=== PATIENT | male | born 1955 | race Caucasian/White ===

== ENCOUNTER 2017-11-02 22:06 | Emergency (ER) | payer OTHER ==
--- NOTE | 2017-11-02 22:26 | PDOC ---
Attending Attestation - Resident Resident Name: Adi Durán - ED Attending Attestation I have performed the following: I have examined & evaluated the patient, The case was reviewed & discussed with the resident, I agree w/resident's findings & plan, Exceptions are as noted - HPI HPI: 11/02/17 22:25 62y M hx of HL, r sided back pain approx 3pm that now radiates to the RLL. pain seems to intermittently worsen and now is not too bad. the patient denies any fever/chills, dysuria though he notes some dark urine prior to presentation. no dysuria or other urinary symtoms vomiting. on exam the pt is in no acute distress minimal R flank tendernesss with percussion no abd tenderness suspect kidney stones will ck labs, ua will obtain ct, will treat with fluids, pain meds will reassess - Physicial Exam PE: 11/03/17 01:12 see above - Medical Decision Making 11/03/17 01:[address] noted for kidney stones, some hydro noted pts pain is controlled curretnly will dc with uro follow up and supportive care I discussed the physical exam findings, ancillary test results and final diagnoses with the patient. I answered all of the patient's questions. The patient was satisfied with the care received and felt comfortable with the discharge plan and treatment plan. The patient will call their primary care physician within 24 hours to arrange follow-up and will return to the Emergency Department with any new, persistent or worsening symptoms.
[2017-11-02 22:31] VITALS: BP 121/90; PULSE 67; TEMP 98; BMI 23.3
[2017-11-02] MEDS ORDERED: KETOROLAC TROMETHAMINE 15 MG/ML VIAL IVPUSH ONE (22:36)
--- NOTE | 2017-11-02 22:36 | PDOC ---
History of Present Illness - General Chief Complaint: Pain, Acute Stated Complaint: BACK PAIN Time Seen by Provider: 11/02/17 22:18 History Source: Patient Exam Limitations: No Limitations - History of Present Illness Initial Comments: 11/02/17 22:32 62 with h/o hld present to the with LLQ pain that started around 3pm as lower right back pain. Pain is worse when patient is sitting down. One episode earlier today of dark urine. Denies history of renal stones and appendicitis. No dysuria, no hematuria. no chills, fever, nausea, vomiting, diarrhea. 11/02/17 22:33 Past History - Past Medical History Allergies/Adverse Reactions: Allergies Allergy/AdvReac Type Severity Reaction Status Date / Time No Known Allergies Allergy Verified 11/02/17 22:29 - Immunization History Td Vaccination: Yes Immunization Up to Date: No - Suicide/Smoking/Psychosocial Hx Smoking Status: No Smoking History: Never smoked Have you smoked in the past 12 months: No Number of Cigarettes Smoked Daily: 0 Information on smoking cessation initiated: No Hx Alcohol Use: No Drug/Substance Use Hx: No Review of Systems - Review of Systems Able to Perform ROS?: Yes Is the patient limited [place] proficient: No Constitutional: No: Symptoms Reported HEENTM: No: Symptoms Reported Respiratory: No: Symptoms reported Cardiac (ROS): No: Symptoms Reported ABD/GI: No: Symptoms Reported : Yes: See HPI Musculoskeletal: Yes: See HPI Integumentary: No: Symptoms Reported Neurological: No: Symptoms reported Endocrine: No: Symptoms Reported *Physical Exam - Vital Signs Last Vital Signs Temp Pulse Resp BP Pulse Ox 98.0 F 67 18 121/90 98 11/02/17 22:29 11/02/17 22:29 11/02/17 22:29 11/02/17 22:29 11/02/17 22:29 - Physical Exam General Appearance: Yes: Nourished, Appropriately Dressed. No: Apparent Distress HEENT: positive: EOMI, RADHA, Normal ENT Inspection Neck: positive: Trachea midline. negative: Tender Respiratory/Chest: positive: Lungs Clear, Normal Breath Sounds. negative: Chest Tender, Respiratory Distress Cardiovascular: positive: Regular Rhythm, Regular Rate, S1, S2 Gastrointestinal/Abdominal: positive: Normal Bowel Sounds, Flat, Soft. negative : Tender Musculoskeletal: positive: CVA Tenderness (R). negative: Vertebral Tenderness Extremity: positive: Normal Capillary Refill Integumentary: positive: Normal Color, Dry, Warm Neurologic: positive: Fully Oriented, Alert, Normal Mood/Affect ED Treatment Course - LABORATORY CBC & Chemistry Diagram: 11/02/17 22:40 11/02/17 22:40 Medical Decision Making - Medical Decision Making 11/02/17 22:35 renal stones vs muscular spasm vs appendicitis basic labs, ua, ct abd pending 11/02/17 23:13 UA: 2+ blood, protein CT pending 11/02/17 23:16 Patient signed out to Dr. Miranda *DC/Admit/Observation/Transfer Diagnosis at time of Disposition: Nephrolithiasis - Discharge Dispostion Disposition: HOME Condition at time of disposition: Improved - Referrals - Patient Instructions Printed Discharge Instructions: DI for Kidney Stones Additional Instructions: Come back to the Ed for any new, concerning or worsening symptom. Follow up with your primary doctor within the next 3 days. - Post Discharge Activity
[2017-11-02 22:48] LABS: BASO % 0.5 % (0-2.0); EOS % 0.4 % (0-4.5); HEMOGLOBIN 13.6 GM/dL (11.7-16.9); LYMPH % 15.5 % (8-40); MCH 31.6 pg (25.7-33.7); MEAN CELL VOLUME 93.1 fl (80-96); MEAN PLT VOLUME 8.6 fl (7.5-11.1); NEUT % 76.6 % (42.8-82.8); PLATELET COUNT 176 K/MM3 (134-434); RDW 13.2 % (11.9-15.9); WHITE BLOOD COUNT 9.2 K/mm3 (4.0-10.0)
[2017-11-02] MEDS ORDERED: KETOROLAC TROMETHAMINE 15 MG/ML VIAL ONE (22:49)
[2017-11-02 22:52] LABS: URINE APPEARANCE SLCLOUDY; URINE BILIRUBIN NEGATIVE (NEGATIVE); URINE BLOOD 3+ (NEGATIVE); URINE COLOR YELLOW; URINE GLUCOSE (UA) NEGATIVE (NEGATIVE); URINE KETONE NEGATIVE (NEGATIVE); URINE LEUK ESTERASE NEGATIVE (NEGATIVE); URINE NITRITE NEGATIVE (NEGATIVE); URINE UROBILINOGEN 4.0 E.U/dl mg/dL (0.2-1.0)
[2017-11-02 22:53] LABS: URINE PROTEIN 2+ (NEGATIVE)
[2017-11-02] MEDS ORDERED: SODIUM CHLORIDE 1,000 ML IV STA (23:05)
[2017-11-02] MEDS ORDERED: TAMSULOSIN HCL 0.4 MG CAP.ER.24H (FP) PO ONE (23:10)
[2017-11-02 23:18] LABS: ALBUMIN 4.1 g/dl (3.4-5.0); ALK PHOS 36 U/L (45-117); ANION GAP 5 (8-16); BILIRUBIN,TOTAL 0.8 mg/dL (0.2-1.0); BLOOD UREA NITROGEN 16 mg/dL (7-18); CALCIUM 8.1 mg/dL (8.5-10.1); CHLORIDE 105 mmol/L (98-107); CO2 30 mmol/L (21-32); GLUCOSE,RANDOM 94 mg/dL (74-106); SGOT/AST 23 U/L (15-37); SGPT/ALT 21 U/L (12-78); SODIUM 140 mmol/L (136-145); TOT PROT 6.3 g/dl (6.4-8.2)
[2017-11-02] MEDS ORDERED: TAMSULOSIN HCL 0.4 MG CAP.ER.24H (FP) ONE (23:26)
--- NOTE | 2017-11-02 23:54 | PDOC ---
*Physical Exam - Vital Signs Last Vital Signs Temp Pulse Resp BP Pulse Ox 98.0 F 67 18 121/90 98 11/02/17 22:29 11/02/17 22:29 11/02/17 22:29 11/02/17 22:29 11/02/17 22:29 - Physical Exam Comments: 11/03/17 00:51 GENERAL: Awake, alert, and fully oriented, in no acute distress HEAD: No signs of trauma, normocephalic, atraumatic EYES: PERRLA, EOMI, sclera anicteric, conjunctiva clear ENT: Auricles normal inspection, hearing grossly normal, nares patent, oropharynx clear without exudates. Moist mucosa NEUROLOGICAL: Cranial nerves II through XII grossly intact. Normal speech, no focal sensorimotor deficits SKIN: Warm, Dry, normal turgor, no rashes or lesions noted. ED Treatment Course - LABORATORY CBC & Chemistry Diagram: 11/02/17 22:40 11/02/17 22:40 - ADDITIONAL ORDERS Additional order review: Laboratory Results 11/02/17 11/02/17 22:48 22:40 Sodium 140 Potassium 4.0 Chloride 105 Carbon Dioxide 30 Anion Gap 5 L BUN 16 Creatinine 1.0 Creat Clearance w eGFR > 60 Random Glucose 94 Calcium 8.1 L Total Bilirubin 0.8 AST 23 ALT 21 Alkaline Phosphatase 36 L Total Protein 6.3 L Albumin 4.1 Urine Color Yellow Urine Appearance Slcloudy Urine pH 7.0 Ur Specific [place] 1.021 Urine Protein 2+ H Urine Glucose (UA) Negative Urine Ketones Negative Urine Blood 3+ H Urine Nitrite Negative Urine Bilirubin Negative Urine Urobilinogen 4.0 e.u/dl 11/02/17 22:40 RBC 4.30 MCV 93.1 MCHC 34.0 RDW 13.2 MPV 8.6 Neutrophils % 76.6 Lymphocytes % 15.5 Monocytes % 7.0 Eosinophils % 0.4 Basophils % 0.5 - RADIOLOGY Radiology Studies Ordered: Category Date Time Status SPIRAL- RENAL-STONE CT [CT] Stat CT Scan 11/02/17 23:15 Taken - Medications Given in the ED: ED Medications Discontinued Medications Generic Name Dose Route Start Last Admin Trade Name Freq PRN Reason Stop Dose Admin Ketorolac Tromethamine 15 mg 11/02/17 22:36 11/02/17 22:52 Toradol Injection - IVPUSH 11/02/17 22:37 15 mg ONCE ONE Administration Medical Decision Making - Medical Decision Making 11/03/17 00:[address] Durán. Patient is pending spiral CT, suspect kidney stone. My wet read of CT scan shows a kidney stone. Patient is resting comfortably in bed, says his pain is much improved. Pending official read from radiology. 11/03/17 01:10 CT shows 2 obstructing right mid ureteral stones measuring 3.5mm and 3.8mm with moderate right hydronephrosis/hydroureter. Patient remains comfortable, alert and ambulatory. Will discharge with pain control, urology follow up and return precautions. *DC/Admit/Observation/Transfer Diagnosis at time of Disposition: Nephrolithiasis - Discharge Dispostion Disposition: HOME Condition at time of disposition: Improved - Prescriptions Prescriptions: Oxycodone HCl/Acetaminophen [Percocet 5-325 mg Tablet -] 1 combo PO Q6H PRN #14 tablet MDD 4 PRN Reason: Pain Tamsulosin HCl [Flomax] 0.4 mg PO DAILY #28 capsule - Referrals Referrals: Dony Kingsley MD [Staff Physician] - - Patient Instructions Printed Discharge Instructions: DI for Kidney Stones Additional Instructions: Come back to the Ed for any new, concerning or worsening symptoms. Follow up with urology this week with the number provided. - Post Discharge Activity
== END 2017-11-03 01:26 | disposition home or self-care (01) ==
LOC: JER 22:06
PROC: 3E0337Z Introduction of Electrolytic and Water Balance Substance into Peripheral Vein, Percutaneous Approach (ICD-10-PCS; principal; 2017-11-02)
PROC: 3E0333Z Introduction of Anti-inflammatory into Peripheral Vein, Percutaneous Approach (ICD-10-PCS; 2017-11-02)
DX: N13.2 Hydronephrosis with renal and ureteral calculous obstruction (principal)
CPT/HCPCS: 36415; 74176; 80053; 81003; 81015; 85025; 96361; 96374; 99283-25